=== PATIENT | female | born 1980 | race Caucasian/White ===

== ENCOUNTER → 2021-01-24 09:23 | Outpatient (BNVA) | payer OTHER, SELFPAY | PROVIDERS: Visit Provider Obstetrics & Gynecology | DX: E28.2 Polycystic ovarian syndrome (principal); Z31.69 Encounter for other general counseling and advice on procreation | CPT/HCPCS: 80061; 81025; 82947; 83036; 84146; 84443; 84702 ==

== ENCOUNTER → 2021-01-31 15:57 | Outpatient (BNVA) | payer OTHER, SELFPAY | PROVIDERS: Visit Provider Obstetrics & Gynecology | DX: N92.6 Irregular menstruation, unspecified (principal) | CPT/HCPCS: 84702 ==

== ENCOUNTER → 2021-02-06 10:53 | Outpatient (BNVA) | payer OTHER, SELFPAY | PROVIDERS: Visit Provider Obstetrics & Gynecology | DX: N92.6 Irregular menstruation, unspecified (principal) | CPT/HCPCS: 82670; 83001; 83520 ==

== ENCOUNTER → 2021-02-07 13:14 | Outpatient (BNVA) | payer OTHER, SELFPAY | PROVIDERS: Visit Provider Obstetrics & Gynecology | DX: R10.31 Right lower quadrant pain (principal) | CPT/HCPCS: 76830 ==

== ENCOUNTER → 2021-05-29 08:25 | Outpatient (BNVA) | payer OTHER, SELFPAY | PROVIDERS: Visit Provider Obstetrics & Gynecology | DX: Z01.419 Encounter for gynecological examination (general) (routine) without abnormal findings (principal); E28.2 Polycystic ovarian syndrome; N92.6 Irregular menstruation, unspecified; E16.1 Other hypoglycemia | CPT/HCPCS: 83525 ==

== ENCOUNTER → 2021-07-25 09:50 | Outpatient (BNVA) | payer OTHER, SELFPAY | PROVIDERS: Visit Provider Family Medicine | DX: Z76.89 Persons encountering health services in other specified circumstances (principal); E28.2 Polycystic ovarian syndrome; F90.9 Attention-deficit hyperactivity disorder, unspecified type; R63.5 Abnormal weight gain; M54.5 Low back pain; Z68.41 Body mass index [BMI] 40.0-44.9, adult; Z71.89 Other specified counseling | CPT/HCPCS: 80053; 83525; 84443; 85025 ==

== ENCOUNTER 2021-09-11 14:02 | Outpatient (CLI) | payer OTHER, SELFPAY ==
[2021-09-11 15:10] LABS: Follicle Stimulating Hormone 6.2 mIU/mL
== END 2021-09-11 14:03 | disposition home or self-care (01) ==
LOC: LAB 14:08
PROVIDERS: Visit Provider Obstetrics & Gynecology
DX: N97.9 Female infertility, unspecified (principal)
CPT/HCPCS: 36415; 83001

== ENCOUNTER → 2022-06-11 11:38 | Outpatient (BNVA) | payer OTHER, SELFPAY | PROVIDERS: Visit Provider Family Medicine | DX: E28.2 Polycystic ovarian syndrome (principal); F41.1 Generalized anxiety disorder; F90.9 Attention-deficit hyperactivity disorder, unspecified type; R63.5 Abnormal weight gain | CPT/HCPCS: 80053; 80061; 82306; 83036; 84443; 85025 ==

== ENCOUNTER → 2022-11-14 09:33 | Outpatient (BNVA) | payer OTHER, SELFPAY | PROVIDERS: Referring Provider Dermatology; Visit Provider Orthopaedic Surgery | DX: M94.261 Chondromalacia, right knee (principal) | CPT/HCPCS: 73560; 73565 ==

== ENCOUNTER → 2023-05-13 09:23 | Outpatient (BNVA) | payer OTHER, SELFPAY | PROVIDERS: PCP Family Medicine; Visit Provider Family Medicine | DX: R39.9 Unspecified symptoms and signs involving the genitourinary system (principal) | CPT/HCPCS: 81000 ==

== ENCOUNTER → 2023-06-11 08:18 | Outpatient (BNVA) | payer OTHER, SELFPAY | PROVIDERS: Visit Provider Family Medicine | DX: N39.0 Urinary tract infection, site not specified (principal) | CPT/HCPCS: 81000 ==

== ENCOUNTER → 2023-08-14 08:58 | Outpatient (BNVA) | payer OTHER, SELFPAY | PROVIDERS: Visit Provider Family Medicine | DX: E11.9 Type 2 diabetes mellitus without complications (principal); F90.9 Attention-deficit hyperactivity disorder, unspecified type; R63.5 Abnormal weight gain; E83.52 Hypercalcemia; E83.42 Hypomagnesemia | CPT/HCPCS: 80053; 80061; 82306; 83036; 83735; 84439; 84443; 85025 ==

== ENCOUNTER → 2023-11-13 08:10 | Outpatient (BNVA) | payer OTHER, SELFPAY | PROVIDERS: PCP Family Medicine; Visit Provider Specialist | DX: M17.11 Unilateral primary osteoarthritis, right knee | CPT/HCPCS: 73560; 73565 ==

== ENCOUNTER → 2024-04-06 15:03 | Outpatient (BNVA) | payer OTHER, SELFPAY | PROVIDERS: PCP Family Medicine; Visit Provider Family Medicine | DX: E11.9 Type 2 diabetes mellitus without complications (principal); F90.0 Attention-deficit hyperactivity disorder, predominantly inattentive type | CPT/HCPCS: 84443 ==

== ENCOUNTER → 2024-05-06 09:09 | Outpatient (BNVA) | payer OTHER, SELFPAY | PROVIDERS: PCP Family Medicine; Visit Provider Family Medicine | DX: E55.9 Vitamin D deficiency, unspecified (principal); E88.810 Metabolic syndrome; E88.818 Other insulin resistance; J30.9 Allergic rhinitis, unspecified; E11.9 Type 2 diabetes mellitus without complications | CPT/HCPCS: 82306; 83525 ==

== ENCOUNTER → 2024-08-05 09:49 | Outpatient (BNVA) | payer OTHER, SELFPAY | PROVIDERS: PCP Family Medicine; Visit Provider Nurse Practitioner Family | DX: F90.0 Attention-deficit hyperactivity disorder, predominantly inattentive type (principal); E11.9 Type 2 diabetes mellitus without complications | CPT/HCPCS: 80053; 80061; 81003; 83036; 83735; 84100; 84439; 84443; 85025; 87086 ==

== ENCOUNTER 2024-08-12 09:33 | Outpatient (CLI) | payer OTHER, SELFPAY ==
--- NOTE | 2024-08-12 09:20 | MM_ITS ---
WS: [id number] BILATERAL SCREENING DIGITAL TOMOSYNTHESIS MAMMOGRAM WITH CAD HISTORY: Z12.31 - Encounter for screening mammogram for malignant ... COMPARISON: 05/18/2016 Bilateral CC and MLO views with tomosynthesis and synthetic mammography submitted. Computer aided det ection analyzed. Breast composition: There are scattered areas of fibroglandular density. No suspicious masses, microc alcifications or architectural distortion. MM/MM scr BI tomosynthesis [id number] IMPRESSION: BI-RADS: 2 - Benign. FOLLOW UP: 1 Year Follow-up
== END 2024-08-12 09:34 | disposition home or self-care (01) ==
LOC: MOBLMAM 09:36
PROVIDERS: PCP Nurse Practitioner Family; Visit Provider Nurse Practitioner Family
DX: Z12.31 Encounter for screening mammogram for malignant neoplasm of breast (principal); R92.323 Mammographic fibroglandular density, bilateral breasts
CPT/HCPCS: 77063; 77067

== ENCOUNTER → 2025-09-01 15:12 | Outpatient (BNVA) | payer OTHER, SELFPAY | PROVIDERS: PCP Nurse Practitioner Family; Visit Provider Nurse Practitioner Family | DX: F32.A Depression, unspecified (principal); R53.83 Other fatigue; N95.1 Menopausal and female climacteric states; Z13.6 Encounter for screening for cardiovascular disorders; Z79.899 Other long term (current) drug therapy; E55.9 Vitamin D deficiency, unspecified | CPT/HCPCS: 80053; 80061; 81003; 82306; 82627; 82670; 83001; 83002; 83036; 84144; 84439; 84443; 85025; 86376 ==

== ENCOUNTER → 2025-09-15 08:58 | Outpatient (BNVA) | payer OTHER, SELFPAY | PROVIDERS: PCP Nurse Practitioner Family; Visit Provider Obstetrics & Gynecology | DX: Z01.419 Encounter for gynecological examination (general) (routine) without abnormal findings (principal) | CPT/HCPCS: 87624 ==

== ENCOUNTER 2025-09-20 13:22 | Outpatient (CLI) | payer OTHER, SELFPAY ==
--- NOTE | 2025-09-20 13:32 | MM_ITS ---
WS: [id number] BILATERAL 3D TOMOSYNTHESIS DIGITAL SCREENING MAMMOGRAPHY WITH CAD CLINICAL INFORMATION: SCREENING HISTORY: Screening mammogram. No current complaints. COMPARISON: 2023 TECHNIQUE: Bilateral CC and MLO views. FINDINGS: The breasts are composed of heterogeneous fibroglandular density tissue, which can limit the detection of small underlying mass lesions. No suspicious mass, asymmetry, calcifications, or architectural distortion. No evidence of malignancy. MM/MM scr tomosynthesis [id number] IMPRESSION: DENSITY: The breasts are heterogeneously dense, which may obscure small masses. BI-RADS: 1 - Negative FOLLOW UP: 1 Year Follow-up Recommend return to annual screening mammography.
== END 2025-09-20 13:23 | disposition home or self-care (01) ==
PROVIDERS: PCP Nurse Practitioner Family; Visit Provider Nurse Practitioner Family
DX: Z12.31 Encounter for screening mammogram for malignant neoplasm of breast (principal); R92.333 Mammographic heterogeneous density, bilateral breasts; R92.323 Mammographic fibroglandular density, bilateral breasts
CPT/HCPCS: 77063; 77067